=== PATIENT | female | born 1990 | race Caucasian/White ===

== ENCOUNTER 2016-07-06 15:00 | Emergency (ER) | payer OTHER ==
[~2016-07-06] VITALS: Ht 144.8 cm; Wt 31.8 kg
--- NOTE | 2016-07-06 17:54 | NUR ---
MSE COMPLETED, PT D/C'D HOME, [facility]/RX / [facility] [id number] FACILITIES,HOMELESS PACKET GIVEN. PT TOOK ALL BELONGINGS.
[2016-07-06 17:56] VITALS: BP 101/57; PULSE 78; RESP 18; O2SAT 98
== END 2016-07-06 17:56 | disposition home or self-care (01) ==
LOC: ER 15:05
DX: R07.89 Other chest pain (principal); F43.0 Acute stress reaction; F41.9 Anxiety disorder, unspecified; Z59.0 Homelessness
CPT/HCPCS: 36415; 71010; 80048; 80076; 80307; 81001; 84484; 84703; 85025; 85730; 93005; 99285; A4663; G0480; G0481; G0482